=== PATIENT | male | born 1980 | race Two or more races ===

== ENCOUNTER 2023-07-18 16:38 | Emergency (ER) | payer MEDICAID ==
[~2023-07-18] VITALS: Ht 175.3 cm; Wt 69.4 kg
[2023-07-18] MEDS ORDERED: INSU100V7 SQ (17:05)
[2023-07-18] MEDS ORDERED: INSU100C SQ (17:05)
[2023-07-18 17:08] LABS: BASOPHILS # (AUTO) 0.1 K/UL (0.0-0.2); BASOPHILS % (AUTO) 0.7 % (0.0-2.0); EOSINOPHILS # (AUTO) 0.2 K/uL (0.0-0.7); EOSINOPHILS % (AUTO) 1.6 % (0.0-7.0); HEMATOCRIT 38.4 % (36.7-47.1); HEMOGLOBIN 12.6 g/dL (12.5-16.3); LYMPHOCYTES # (AUTO) 1.2 K/uL (0.8-4.8); LYMPHOCYTES % (AUTO) 10.9 % (20.5-51.5); MEAN CORPUSCULAR HEMOGLOBIN 27.2 uug (23.8-33.4); MEAN CORPUSCULAR HGB CONC 33 g/dL (32.5-36.3); MEAN CORPUSCULAR VOLUME 83.2 fL (73.0-96.2); MONOCYTES # (AUTO) 0.7 K/uL (0.1-1.30); MONOCYTES % (AUTO) 6.3 % (0.0-11.0); NEUTROPHILS # (AUTO) 8.6 K/uL (1.8-8.9); NEUTROPHILS % (AUTO) 80.5 % (38.5-71.5); PLATELET COUNT (AUTO) 401 K/uL (152-348); RED BLOOD CELL COUNT(AUTO) 4.62 MIL/uL (4.06-5.63); RED CELL DISTRIBUTION WIDTH 14.8 % (12.1-16.2); WHITE BLOOD COUNT (AUTO) 10.7 K/uL (3.6-10.2)
[2023-07-18 17:18] LABS: DIFFERENTIAL COMMENT 1
[2023-07-18 17:28] LABS: ETHANOL < 3 MG/DL (0-10)
[2023-07-18 17:35] LABS: ALANINE AMINOTRANSFERASE 22 U/L (16-63); ALBUMIN 2.8 g/dL (3.4-5.0); ALKALINE PHOSPHATASE 106 U/L (50-136); ASPARTATE AMINOTRANSFERASE 19 U/L (15-37); BILIRUBIN,DIRECT 0.1 mg/dL (0.0-0.2); BILIRUBIN,TOTAL 0.2 mg/dL (0.2-1.0); CARBON DIOXIDE 29 mmol/L (21-32); CHLORIDE 106 mmol/L (98-107); CREATININE 0.7 mg/dL (0.6-1.3); GLUCOSE 76 mg/dL (74-106); POTASSIUM 4.1 mmol/L (3.5-5.1); SODIUM SERUM 139 mmol/L (136-145); TOTAL PROTEIN, SERUM 6.2 g/dL (6.4-8.2); UREA NITROGEN, BLOOD 21 mg/dL (7-18)
[2023-07-18 17:44] LABS: CALCIUM 8.3 mg/dL (8.5-10.1)
[2023-07-18 22:13] VITALS: BP 125/74; TEMP 98.6; O2SAT 99
== END 2023-07-18 21:30 | disposition home or self-care (01) ==
LOC: ER 16:39
DX: E11.649 Type 2 diabetes mellitus with hypoglycemia without coma (principal); Z90.49 Acquired absence of other specified parts of digestive tract; Z79.4 Long term (current) use of insulin
CPT/HCPCS: 80076; 80048; 85025; 84484 ×2; 36415; 93005; 99284; 80320; J7040; A4663; G0480